=== PATIENT | female | born 1975 | race Caucasian/White ===

== ENCOUNTER 2023-03-10 11:24 | Emergency (ER) | payer BC, OTHER ==
[2023-03-10 11:55] VITALS: BP 164/85; PULSE 60; RESP 16; TEMP 98.1; BMI 21.5
[2023-03-10 12:25] LABS: HEMATOCRIT 44.5 % (32.4-45.2); MCH 30.3 pg (25.7-33.7); MCHC 33.7 g/dl (32.0-36.0); MEAN CELL VOLUME 90.1 fl (80-96); PLATELET COUNT 235.3 10^3/uL (134-434); RBC 4.94 10^6/uL (3.60-5.2); RDW 12.8 % (11.6-15.6); WHITE BLOOD COUNT 6.2 10^3/uL (4.0-10.8)
[2023-03-10 12:27] LABS: PLATELET ESTIMATE ADEQUATE
[2023-03-10 12:35] LABS: ALBUMIN 4.9 g/dl (3.4-5.0); BILIRUBIN,TOTAL 1.4 mg/dl (0.2-1); CREATININE 0.6 mg/dl (0.6-1.3); POTASSIUM 4.1 mmol/L (3.5-5.1); TOT PROT 7.7 g/dl (6.4-8.2)
== END 2023-03-10 13:03 | disposition home or self-care (01) ==
LOC: FER 11:24
DX: I10 Essential (primary) hypertension (principal); R42 Dizziness and giddiness
CPT/HCPCS: 36415; 80053; 84484; 85027; 93005; 99284-25